=== PATIENT | female | born 1975 | race Caucasian/White ===

== ENCOUNTER → 2019-08-30 09:17 | Outpatient (BNVA) | payer OTHER, SELFPAY | PROVIDERS: Family Provider Family Medicine; PCP Family Medicine; Visit Provider Family Medicine | DX: R50.9 Fever, unspecified (principal) | CPT/HCPCS: 36415; 85025; 87804 ==

== ENCOUNTER → 2020-09-08 13:46 | Outpatient (BNVA) | payer OTHER, SELFPAY | PROVIDERS: Family Provider Family Medicine; PCP Family Medicine; Visit Provider Family Medicine | DX: G89.29 Other chronic pain (principal); M54.2 Cervicalgia | CPT/HCPCS: 72040 ==

== ENCOUNTER 2020-09-22 11:33 | Outpatient (CLI) | payer OTHER, SELFPAY ==
--- NOTE | 2020-09-22 11:39 | MR_ITS ---
WS: [id number] MRI CERVICAL SPINE NONCONTRAST TECHNIQUE: Sagittal T1, T2 and STIR imaging. Axial T2, gradient, and fiesta imaging. CLINICAL INFORMATION: CHRONIC NECK PAIN COMPARISON: None. FINDINGS: Straightening of the normal cervical lordosis. Cord signal is normal. No high-grade central canal padmini nosis. Disc bulging worse at C5-C6 and C6-C7. C2-C3: Normal. C3-C4: Slight anterolisthesis C3 on C4. Disc osteophyte complex with endplate ridging. Mild left fora deepak narrowing. Moderate left facet arthropathy with left facet effusion. Periarticular edema consis tent with synovitis. C4-C5: Mild disc osteophytic ridging. Mild left and no significant right foraminal narrowing. Mild to moderate left facet arthropathy. C5-C6: Disc osteophyte complex with endplate ridging. Mild central canal stenosis. Moderate to severe left bony foraminal narrowing with osteophytic ridging. C6-C7: Disc osteophyte complex with endplate ridging. Small central protrusion. Mild central canal st enosis. Moderate to severe bilateral bony foraminal narrowing. C7-T1: Tiny shallow central protrusion. Mild left and no significant right foraminal narrowing. Spina l canal is patent. Visualized brain stem structures: Normal. Prevertebral soft tissues: Normal. MR/MR cervical spin wo con* [id number] IMPRESSION: 1. Straightening of the normal cervical lordosis. Cord signal is normal. 2. Moderate left facet arthropathy C3-C4 with left facet effusion and periarti cular edema consistent with synovitis. This is likely inflammatory. Recommend c orrelation for left neck pain. 3. Disc osteophyte complexes with mild central canal stenosis C5-C6 and C6-C7. Small shallow central protrusion C6-C7. 4. Moderate to severe bony foraminal narrowing left C5-C6 and moderate to dana re bilateral bony foraminal narrowing C6-C7. 5. Tiny shallow central protrusion C7-T1.
== END 2020-09-22 11:34 | disposition home or self-care (01) ==
LOC: RADSHAW 11:38
PROVIDERS: PCP Family Medicine; Visit Provider Family Medicine
DX: G89.29 Other chronic pain (principal); M50.23 Other cervical disc displacement, cervicothoracic region; M25.78 Osteophyte, vertebrae; M47.812 Spondylosis without myelopathy or radiculopathy, cervical region
CPT/HCPCS: 72141

== ENCOUNTER 2020-12-11 06:00 | Outpatient (RCR) | payer OTHER, SELFPAY | END 2021-01-07 23:59 | disposition home or self-care (01) | LOC: GPT 06:00 | PROVIDERS: PCP Family Medicine; Referring Provider Neurological Surgery; Visit Provider Neurological Surgery | DX: M47.9 Spondylosis, unspecified (principal); M43.02 Spondylolysis, cervical region; M54.2 Cervicalgia | CPT/HCPCS: 97110; 97140; 97162; 97530 ==

== ENCOUNTER 2021-10-06 06:00 | Outpatient (RCR) | payer MEDICAID, SELFPAY | END 2021-10-08 23:59 | disposition home or self-care (01) | LOC: SPT 06:00 | PROVIDERS: PCP Family Medicine; Referring Provider Neurological Surgery; Visit Provider Neurological Surgery | DX: M54.12 Radiculopathy, cervical region (principal); M54.2 Cervicalgia; M25.611 Stiffness of right shoulder, not elsewhere classified; M25.612 Stiffness of left shoulder, not elsewhere classified | CPT/HCPCS: 97161 ==

== ENCOUNTER 2021-10-09 06:00 | Outpatient (RCR) | payer MEDICAID, SELFPAY | END 2021-11-07 23:59 | disposition home or self-care (01) | LOC: SPT 06:00 | PROVIDERS: PCP Family Medicine; Referring Provider Neurological Surgery; Visit Provider Neurological Surgery | DX: M54.12 Radiculopathy, cervical region (principal) | CPT/HCPCS: 97110; 97530 ==

== ENCOUNTER 2021-11-08 06:00 | Outpatient (RCR) | payer MEDICAID, SELFPAY | END 2021-12-08 23:59 | disposition home or self-care (01) | LOC: SPT 06:00 | PROVIDERS: PCP Family Medicine; Referring Provider Neurological Surgery; Visit Provider Neurological Surgery | DX: M54.12 Radiculopathy, cervical region (principal) | CPT/HCPCS: 97110; 97530 ==

== ENCOUNTER 2021-12-09 06:00 | Outpatient (RCR) | payer MEDICAID, SELFPAY | END 2022-01-07 23:59 | disposition home or self-care (01) | LOC: SPT 06:00 | PROVIDERS: PCP Family Medicine; Referring Provider Neurological Surgery; Visit Provider Neurological Surgery | DX: M54.12 Radiculopathy, cervical region (principal); M54.2 Cervicalgia; M25.611 Stiffness of right shoulder, not elsewhere classified; M25.612 Stiffness of left shoulder, not elsewhere classified | CPT/HCPCS: 97110; 97112; 97140; 97164; 97530; 97535 ==

== ENCOUNTER 2022-01-08 06:00 | Outpatient (RCR) | payer MEDICAID, SELFPAY | END 2022-02-07 23:59 | disposition home or self-care (01) | LOC: SPT 06:00 | PROVIDERS: PCP Family Medicine; Referring Provider Neurological Surgery; Visit Provider Neurological Surgery | DX: M54.12 Radiculopathy, cervical region (principal); M54.2 Cervicalgia; M25.611 Stiffness of right shoulder, not elsewhere classified; M25.612 Stiffness of left shoulder, not elsewhere classified | CPT/HCPCS: 97110; 97112 ==

== ENCOUNTER 2022-02-08 06:00 | Outpatient (RCR) | payer MEDICAID, SELFPAY | END 2022-02-17 23:59 | disposition home or self-care (01) | LOC: SPT 06:00 | PROVIDERS: PCP Family Medicine; Referring Provider Neurological Surgery; Visit Provider Neurological Surgery | DX: M43.02 Spondylolysis, cervical region (principal); M54.2 Cervicalgia | CPT/HCPCS: 97110; 97116 ==

== ENCOUNTER 2022-06-14 06:00 | Outpatient (RCR) | payer MEDICAID, SELFPAY | END 2022-07-10 23:59 | disposition home or self-care (01) | LOC: GPT 06:00 | PROVIDERS: PCP Family Medicine; Visit Provider Neurological Surgery | DX: M43.12 Spondylolisthesis, cervical region (principal); M50.33 Other cervical disc degeneration, cervicothoracic region; M40.12 Other secondary kyphosis, cervical region | CPT/HCPCS: 97110; 97161; 97530 ==

== ENCOUNTER 2022-07-11 06:00 | Outpatient (RCR) | payer MEDICAID, SELFPAY | END 2022-08-10 23:59 | disposition home or self-care (01) | LOC: GPT 06:00 | PROVIDERS: PCP Family Medicine; Visit Provider Neurological Surgery | DX: M43.12 Spondylolisthesis, cervical region (principal); M50.33 Other cervical disc degeneration, cervicothoracic region; M40.12 Other secondary kyphosis, cervical region | CPT/HCPCS: 97110; 97112; 97164; 97530 ==

== ENCOUNTER 2022-08-11 06:00 | Outpatient (RCR) | payer MEDICAID, SELFPAY | END 2022-09-07 23:59 | disposition home or self-care (01) | LOC: GPT 06:00 | PROVIDERS: PCP Family Medicine; Visit Provider Neurological Surgery | DX: M43.12 Spondylolisthesis, cervical region (principal); M50.33 Other cervical disc degeneration, cervicothoracic region; M40.12 Other secondary kyphosis, cervical region | CPT/HCPCS: 97110; 97530 ==

== ENCOUNTER 2022-09-08 06:00 | Outpatient (RCR) | payer MEDICAID, SELFPAY | END 2022-10-08 23:59 | disposition home or self-care (01) | LOC: GPT 06:00 | PROVIDERS: PCP Family Medicine; Visit Provider Neurological Surgery | DX: M43.12 Spondylolisthesis, cervical region (principal); M50.33 Other cervical disc degeneration, cervicothoracic region; M40.12 Other secondary kyphosis, cervical region | CPT/HCPCS: 97110; 97530 ==

== ENCOUNTER 2022-10-09 06:00 | Outpatient (RCR) | payer MEDICAID, SELFPAY | END 2022-11-07 23:59 | disposition home or self-care (01) | LOC: GPT 06:00 | PROVIDERS: PCP Family Medicine; Visit Provider Neurological Surgery | DX: M43.12 Spondylolisthesis, cervical region (principal); M50.33 Other cervical disc degeneration, cervicothoracic region; M40.12 Other secondary kyphosis, cervical region | CPT/HCPCS: 20561; 97140; 97164 ==